=== PATIENT | female | born 1985 | race Caucasian/White ===

== ENCOUNTER 2023-05-15 08:04 | Inpatient (IN) ==
[2023-05-15] MEDS ORDERED: Dinoprostone 10 MG VAG.SUPP VAGINAL ONE (08:30)
[2023-05-15] MEDS ORDERED: Lidocaine 1% VIAL 10 MG/ML 30 ML VIAL INJ PRN (08:30)
[2023-05-15 13:43] LABS: Urine Benzodiazepine Screen None Detected (None Detect); Urine Cannabinoids Screen None Detected (None Detect); Urine Opiates Screen None Detected (None Detect)
[2023-05-15] MEDS ORDERED: Promethazine INJ(RESTRICTED) 25 MG/ML 1 ml VIAL IV ONE (21:52)
[2023-05-15] MEDS: Lactated Ringers 1000 ml BAG 1,000 ML IV ONE (22:07)
[2023-05-15 22:20] LABS: ABS Basophils 0.1 10^3/uL (0.0-0.1); ABS Eosinophils 0.1 10^3/uL (0.0-0.5); ABS Lymphocytes 2.2 10^3/uL (1.0-4.8); ABS Monocytes 0.8 10^3/uL (0.0-0.9); ABS Neutrophils 5.9 10^3/uL (1.5-7.6); ABS Nucleated RBC 0.01 10^3/ul; Hematocrit 38.1 % (35-45); Hemoglobin 13.7 g/dL (11.5-14.3); Lymphocyte % 24.5 %; Mean Corpuscular Hemoglobin 33.6 pg (27-33); Mean Corpuscular Hgb Conc 35.8 g/dL (31-36); Mean Corpuscular Volume 93.8 fL (80-97); Mean Platelet Volume 8.5 fL (7.5-11.2); Nucleated Red Blood Cells % 0.1 %/100WBC (0.0-0.8); Platelet Count 252 10^3/uL (150-450); Red Blood Count 4.06 10^6/uL (3.63-4.92); Red Cell Distribution Width 13.6 % (12-17); White Blood Count 9.1 10^3/uL (3.8-11.8)
[2023-05-15 22:35] LABS: Albumin 3.7 g/dL (3.2-5.2); Calcium 9.3 mg/dL (8.6-10.3); Potassium 4.5 mmol/L (3.5-5.0); Total Bilirubin 0.3 mg/dL (0.2-1.0)
[2023-05-15 22:41] LABS: Albumin/Globulin Ratio 1.7 (1-3); Creatinine, Serum 0.71 mg/dL (0.51-0.95); Globulin 2.2 g/dL (2-4); Total Protein 5.9 g/dL (6.4-8.9); Uric Acid 4.5 mg/dL (2.3-6.6); eGFR CKD-EPI 112.2 (>60)
[2023-05-16] MEDS ORDERED: Lidocaine 1.5% EPI 1:200,000 30 ML SDV ONE (02:56)
[2023-05-16] MEDS ORDERED: OBEPIDURAL (200 ML) 200 ML EPIDURAL ONE (02:56)
[2023-05-16] MEDS: Lactated Ringers 1000 ml BAG 1,000 ML IV ONE (03:50)
[2023-05-16] MEDS ORDERED: Lactated Ringers 1000 ml BAG 1,000 ML IV ONE (03:57)
[2023-05-16] MEDS ORDERED: Sodium Citrate/Citric Acid LIQ 15 ML UDC PO PRN (03:57)
[2023-05-16] MEDS ORDERED: Phenylephrine 40 mcg/mL 10mL (400mcg) SYRINGE IV PUSH PRN ×2 (03:57)
[2023-05-16] MEDS ORDERED: Lactated Ringers 1000 ml BAG 1,000 ML IV SCH ×2 (04:00→13:00)
[2023-05-16] MEDS ORDERED: OBEPIDURAL (200 ML) 200 ML EPIDURAL SCH (04:00)
[2023-05-16 05:02] LABS: Urine Appearance Clear; Urine Bilirubin Negative (Negative); Urine Blood Negative (Negative); Urine Color Yellow; Urine Glucose Negative (Negative); Urine Ketones Negative (Negative); Urine Nitrite Negative (Negative); Urine Protein Negative (Negative); Urine Specific Gravity 1.012 (1.002-1.030); Urine Urobilinogen Negative (Negative)
[2023-05-16] MEDS ORDERED: Glycerin ADULT 2.4 gm SUPP PR PRN (12:44)
[2023-05-16] MEDS ORDERED: Witch Hazel PAD JAR TOPICAL PRN (12:44)
[2023-05-16] MEDS ORDERED: Oxytocin 10 UNITS/ML 1 ML VIAL IM ONE (12:44)
[2023-05-16] MEDS ORDERED: Dibucaine 1% OINT 28.35 GM TUBE PR PRN (12:44)
[2023-05-16] MEDS ORDERED: Calcium Carb (TUMS) 500 mg CHEW TAB PO PRN (12:45)
[2023-05-17 10:05] LABS: ABS Basophils 0.1 10^3/uL (0.0-0.1); ABS Lymphocytes 1.8 10^3/uL (1.0-4.8); ABS Monocytes 0.4 10^3/uL (0.0-0.9); ABS Neutrophils 10.3 10^3/uL (1.5-7.6); Eosinophil % 0.4 %; Hematocrit 32.7 % (35-45); Hemoglobin 11.5 g/dL (11.5-14.3); Lymphocyte % 14.2 %; Mean Corpuscular Hemoglobin 33.1 pg (27-33); Mean Corpuscular Hgb Conc 35.1 g/dL (31-36); Mean Corpuscular Volume 94.4 fL (80-97); Platelet Count 235 10^3/uL (150-450); Red Blood Count 3.47 10^6/uL (3.63-4.92); Red Cell Distribution Width 13.7 % (12-17); White Blood Count 12.7 10^3/uL (3.8-11.8)
[2023-05-18 11:40] VITALS: BP 146/86
== END 2023-05-18 11:26 | disposition home or self-care (01) | DRG 807 ==
LOC: MCHOBOUT 08:04 → MCHOB 09:04
PROVIDERS: ADMIT Midwife; ATTEND Midwife